=== PATIENT | male | born 2000 | race Caucasian/White ===

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

== ENCOUNTER 2019-04-11 06:27 | Day surgery (SDC) | payer BC ==
[~2019-04-11] VITALS: Ht 177.8 cm; Wt 73.2 kg
[2019-04-11] VITALS (13 sets, daily range): BP systolic 105–129; BP diastolic 61–85; PULSE 45–58; RESP 16–18; Ht 177.8 cm; Wt 73.2 kg
[~2019-04-11 06:27] MED LIST: DENIES; HYDR-3498 PO; HYDR-3601 PO; HYDR-3980 PO; IBUP-1541 PO; IBUP800T48 PO
[2019-04-11] MEDS ORDERED: CEFAZOLIN 2 GM/50 ML (PMX) 50 ML IVPB ONE (06:30)
[2019-04-11] MEDS ORDERED: HYDROGEN PEROXIDE 118 ML ONE (07:57)
[2019-04-11] MEDS ORDERED: DIPHENHYDRAMINE 50 MG INJ IV PRN (08:00)
[2019-04-11] MEDS ORDERED: FENTAnyl 50 MCG/ML VIAL IV PRN ×3 (08:00)
[2019-04-11] MEDS ORDERED: MEPERIDINE 25 MG INJ IV PRN (08:00)
[2019-04-11] MEDS ORDERED: OXYCODONE/ACETAMINOPHEN (5/325) TAB PO PRN ×3 (08:00→09:30)
[2019-04-11] MEDS ORDERED: ONDANSETRON 4 MG INJ IV PRN ×2 (08:00→09:30)
[2019-04-11] MEDS ORDERED: HYDROmorphONE 1 MG/5 ML IV SYRINGE IV PRN ×3 (08:00)
[2019-04-11] MEDS ORDERED: KETOROLAC 30 MG INJ IV PRN (08:00)
[2019-04-11] MEDS ORDERED: CEFAZOLIN 1 GM INJ ONE (08:07)
[2019-04-11] MEDS ORDERED: PROPOFOL 200 MG INJ ONE (08:07)
[2019-04-11] MEDS ORDERED: ROCURONIUM 50 MG INJ ONE (08:07)
[2019-04-11] MEDS ORDERED: FENTAnyl 50 MCG/ML VIAL ONE (08:07)
[2019-04-11] MEDS ORDERED: PROPOFOL 20 ML ONE (08:07)
[2019-04-11] MEDS ORDERED: METOCLOPRAMIDE 10 MG INJ ONE (08:07)
[2019-04-11] MEDS ORDERED: NEOSTIGMINE 3 MG/3 ML SYRINGE ONE (08:09)
[2019-04-11] MEDS ORDERED: GLYCOPYRROLATE 0.4 MG INJ ONE (08:09)
[2019-04-11] MEDS ORDERED: KETOROLAC 30 MG INJ ONE (08:09)
[2019-04-11] MEDS ORDERED: LIDOCAINE 1% (MPF) 30 ML INJ ONE (08:29)
[2019-04-11] MEDS ORDERED: BUPIVACAINE 0.25% (MPF) 30 ML INJ ONE (08:29)
[2019-04-11] MEDS ORDERED: BUPIVACAINE 0.25%/EPI (SDV) 10 ML INJ ONE (08:30)
[2019-04-11] MEDS ORDERED: morphine 10 MG INJ IM PRN (09:30)
[2019-04-11] MEDS ORDERED: IBUPROFEN 600 MG TAB PO PRN (09:30)
== END 2019-04-11 11:22 | disposition home or self-care (01) ==
LOC: SDS 06:27
PROVIDERS: ATTEND Surgery
DX: L05.01 Pilonidal cyst with abscess (principal); F12.90 Cannabis use, unspecified, uncomplicated; Z87.891 Personal history of nicotine dependence
CPT/HCPCS: 11772; 87070; 87075; 87102; 87116; J0690; J1885; J2710; J2765; J3010; Z7610; 88304